=== PATIENT | female | born 1975 | race Two or more races ===

== ENCOUNTER 2020-07-26 18:30 | Emergency (ER) | payer MEDICAID ==
[~2020-07-26] VITALS: Ht 152.4 cm; Wt 86.2 kg
--- NOTE | 2020-07-26 18:39 | NUR ---
ED Nurse Note: Pt ambulated to ed c/o right lateral ankle pain s/p fall from walking down stairs x 35 min ago. pt denies taking medication SUPPORT ASSISTANT. right lateral ankle appears mildly swollen. pt reports "hearing a crack" when incident occured
--- NOTE | 2020-07-26 18:54 | NUR ---
ED Nurse Note: Xray at bedside
--- NOTE | 2020-07-26 18:59 | Emergency Room Report ---
History of Present Illness General Chief Complaint: Lower Extremity Injury Source: Patient Present Illness HPI 44 YO female presents to the ED c/o 07/05 in severity right ankle pain with tenderness and swelling. Pt. reports inability to bear weight s/p twisting both ankles and falling down a step. Pt. reports 3/ 10 in severity pain with plantar flexion of the left. She states she is able to bear weight on the left foot. Pt. denies hitting her head or having a loss of consciousness. Patient denies midline neck or back pain. Patient states she has not taken any medications in an attempt to relieve her symptoms. Denies numbness tingling or loss of sensation or gross motor movements of the extremities, incontinence of bowel or bladder. Denies CP, Palpitations, dizziness, Changes in Vision, weakness or a sudden severe headache. Allergies: Coded Allergies: No Known Allergies (Unverified , 07/26/20) COVID-19 Screening Contact w/high risk pt: No Experienced COVID-19 symptoms?: No COVID-19 Testing performed JUNIOR LINUX SYSTEMS ADMINISTRATOR: No Patient History Past Medical History: see triage record Past Surgical History: none Pertinent Family History: none Last Menstrual Period: 07/22/20 Now: No Reviewed Nursing Documentation: PMH: Agreed; PSxH: Agreed Nursing Documentation-PMH Past Medical History: No History, Except For Review of Systems All Other Systems: negative except mentioned in HPI Physical Exam Vital Signs Date Time Temp Pulse Resp B/P (MAP) Pulse Ox O2 Delivery O2 Flow Rate FiO2 07/26/20 18:33 98.2 78 16 148/72 (97) 99 Room Air Sp02 EP Interpretation: reviewed, normal General Appearance: no apparent distress, alert, GCS 15, non-toxic Head: normocephalic, atraumatic Eyes: bilateral eye normal inspection, bilateral eye PERRL ENT: hearing grossly normal, normal voice Neck: full range of motion, no bony tend Respiratory: lungs clear, normal breath sounds, speaking full sentences Cardiovascular #1: regular rate, rhythm, no edema, normal capillary refill Cardiovascular #2: 2+ dorsalis pedis (R), 2+ dorsalis pedis (L) Musculoskeletal: back normal, decreased range of motion - right ankle secondary to pain, normal range of motion - of the left ankle, tender - TTP to medial and lateral right ankle, moderate visiable swelling. Mild ttp to the anteiror of the left ankle. pt. is weight bearing only to the left ankle. Pt. has decreased ROM of the right ankle. NVI, other - no bruises. Neurologic: alert, motor strength/tone normal, oriented x3, sensory intact, responsive, speech normal Psychiatric: judgement/insight normal Skin: other - ST swelling of the right ankle Medical Decision Making ROSA Moore is my supervising Physician whom patient management has been discussed with. Diagnostic Impression: Primary Impression: Severe ankle sprain Qualified Codes: S93.401A - Sprain of unspecified ligament of right ankle, initial encounter ER Course 44 YO female presents to the ED c/o 8/10 in severity right ankle pain with tenderness and swelling. Pt. reports inability to bear weight s/p twisting both ankles and falling down a step. Pt. reports 3/ 10 in severity pain with plantar flexion of the left. She states she is able to bear weight on the left foot. Pt. denies hitting her head or having a loss of consciousness. Patient denies midline neck or back pain. Patient states she has not taken any medications in an attempt to relieve her symptoms. Denies numbness tingling or loss of sensation or gross motor movements of the extremities, incontinence of bowel or bladder. Denies CP, Palpitations, dizziness, Changes in Vision, weakness or a sudden severe headache. Ddx considered but are not limited to Fracture, dislocation, contusion, Sprain/ Strain/Spasm. Vital signs: are WNL, pt. is afebrile H&PE are most consistent with musculoskeletal injury will perform imaging to r/ o fractures/dislocations. ORDERS: - X-ray Right ankle 3 views - negative for fx, Dislocation, or significant soft tissue injury, per preliminary read in ED, and signed by ROSA Goins , my supervising physician has reviewed, and agrees with my interpretation. ED INTERVENTIONS: - IBU 600mg PO -Right ankle posterior splint applied by sewer and drain technician. Pt. remains neurovascularly intact. --Patient is provided with crutches and instructed on their use DISCHARGE: At this time pt. is stable for d/c to home. Will provide printed patient care instructions, and any necessary prescriptions. Care plan and follow up instructions have been discussed with the patient prior to discharge. Other X-Ray Diagnostic Results Other X-Ray Diagnostic Results : X-Ray ordered: Right ankle # of Views/Limited Vs Complete: 3 View Indication: Pain EP Interpretation: Yes PA Xray: Interpretation reviewed, by supervising MD, and agrees with findings. Interpretation: no dislocation, no soft tissue swelling, no fractures Impression: No acute disease Electronically Signed by: Keturah Goins PA-C Last Vital Signs Date Time Temp Pulse Resp B/P (MAP) Pulse Ox O2 Delivery O2 Flow Rate FiO2 07/26/20 18:33 98.2 78 16 148/72 (97) 99 Room Air Disposition: HOME, SELF-CARE Condition: Stable Scripts Ibuprofen* (MOTRIN*) 600 Mg Tablet 600 MG ORAL THREE TIMES A DAY, #20 TAB Prov: Keturah Goins 07/26/20 Hydrocodone Bit/Acetaminophen 5-325* (NORCO 5-325 TABLET*) 1 Each Tablet 1 TAB ORAL Q6H PRN for FOR PAIN, #12 TAB 0 Refills Prov: Keturah Goins 07/26/20 Referrals: NON PHYSICIAN (PCP) [facility] Patient Instructions: Ankle Sprain Additional Instructions: Take medications as directed. Follow up with an TRAVEL ACCOMMODATION INSPECTOR in 3-5 days, even if your symptoms have resolved. If symptoms persist MRI may be required at the discretion of your PCP or Ortho Specialist. --Please review list of primary care clinics, if you do not already have a primary care provider who can give you an Orthopedic Referral. Return sooner to ED if new symptoms occur, or current symptoms become worse. Do not drink alcohol, drive, or operate heavy machinery while taking [place] as this may cause drowsiness. - Please note that this Emergency Department Report was dictated using [employer] Fashionassistant superintendent for curriculum technology software, occasionally this can lead to erroneous entry secondary to interpretation by the dictation equipment. Keturah Goins Jul 26, 2020 18:59
--- NOTE | 2020-07-26 19:07 | NUR ---
HAND-OFF: Report given to HAKAN Vega.
[2020-07-26] MEDS ORDERED: IBUPROFEN600 M1 ORAL (19:49)
[2020-07-26] MEDS ORDERED: NORCO 5-325 TA1 EAC1 ORAL (19:49)
[2020-07-26 20:35] VITALS: BP 148/72
--- NOTE | 2020-07-26 20:35 | NUR ---
ER DISCHARGE NOTE: Patient is cleared to be discharged per ERMD, pt is aox4, on room air, with stable vital signs. pt was given dc and prescription instructions, pt was able to verbalize understanding, pt id band removed. pt is able to ambulate with steady gait. pt took all belongings.
--- NOTE | 2020-07-27 16:39 | Diagnostic Imaging Report ---
Indication: Right ankle pain Technique: 3 views of the right ankle Comparison: none Findings: No acute fractures. No dislocations. The joint spaces are preserved. There is a small plantar spur Impression: Negative
== END 2020-07-26 20:35 | disposition home or self-care (01) ==
LOC: EMR 18:54
DX: S93.401A Sprain of unspecified ligament of right ankle, initial encounter (principal); X50.1XXA Overexertion from prolonged static or awkward postures, initial encounter; Y92.9 Unspecified place or not applicable
CPT/HCPCS: 73610; Z7502; 99283